=== PATIENT | female | born 1965 | race Caucasian/White ===

== ENCOUNTER 2019-07-25 07:18 | Day surgery (SDC) | payer BC ==
[2019-07-24 12:53] VITALS: BMI 19.5
[2019-07-25] MEDS ORDERED: Fentanyl 100 MCG/2 ML VIAL ONE (07:55)
[2019-07-25] MEDS ORDERED: Midazolam HCl 2 mg/2 ml Vial ONE (07:55)
[2019-07-25] MEDS ORDERED: Ropivacaine 0.5% HCl/PF (150 MG/30 ML VIAL) ONE (07:56)
[2019-07-25] MEDS ORDERED: Ropivacaine 0.2% HCl/PF 20 ML ONE (07:56)
[2019-07-25] MEDS ORDERED: Promethazine HCl 25 MG/ML VIAL IM PRN (09:07)
[2019-07-25] MEDS ORDERED: Zolpidem Tartrate 5 MG TAB PO PRN (09:07)
[2019-07-25] MEDS ORDERED: Ondansetron PF 4 MG/2 ML Vial IVP PRN (09:07)
[2019-07-25] MEDS ORDERED: HYDROcodone/Acetaminophen 10/325 mg Tablet PO PRN ×2 (09:07)
[2019-07-25] MEDS ORDERED: traMADol HCl 50 MG TAB PO PRN ×2 (09:07)
[2019-07-25] MEDS ORDERED: Ropivacaine 0.2% 550 ML 550 ML NERVE BLCK SCH (09:07)
[2019-07-25] MEDS ORDERED: Phenylephrine HCL 10 MG/ML VIAL ONE (09:36)
[2019-07-25] MEDS ORDERED: Dexamethasone 20 MG/5 ML VIAL ONE (11:21)
[2019-07-25] MEDS ORDERED: Lidocaine 1% PF 5 ML VIAL ONE (11:21)
[2019-07-25] MEDS ORDERED: ePHEDrine 50 MG/ML VIAL ONE (11:21)
[2019-07-25] MEDS ORDERED: PROPOFOL 200 MG/20 ML VIAL ONE (11:21)
[2019-07-25] MEDS ORDERED: PHENYLEPHRINE-NS 100 MCG/ML 10 ML SYRINGE ONE (11:21)
[2019-07-25] MEDS ORDERED: Ondansetron PF 4 MG/2 ML Vial ONE (11:21)
[2019-07-25] MEDS ORDERED: Ketorolac Tromethamine 30 MG/ML VIAL IVP SCH (12:00)
--- NOTE | 2019-07-25 12:01 | RAD ---
Exam: XR Wrist 3 Rt View STANDARD HISTORY: ORIF right wrist COMPARISON: 07/23/2019 FINDINGS: 4 intraoperative fluoroscopic images of the right wrist are submitted. A volar plate and multiple screws transfix the previously noted comminuted distal right radial metaph yseal fracture. There has been improvement in alignment of the fracture fragments. Fracture the ulnar styloid process is again seen. Subcutaneous emphysema seen about the distal forearm and right w rist. Correlation with intraoperative findings is recommended. Fluoroscopy: Total time 35.1 seconds with total dose of 0.57 mGy.
--- NOTE | 2019-07-25 12:04 | OP ---
DATE OF PROCEDURE: 07/25/2019 PREOPERATIVE DIAGNOSES: Right distal radius fracture, Colles, no intra- articular split. POSTOPERATIVE DIAGNOSES: Right distal radius fracture, Colles, no intra- articular split. PROCEDURES PERFORMED: 1. Open reduction and internal fixation of right distal radius fracture. 2. Static forearm splint. ROCK LOADER: Tal Romo PA-C ANESTHESIOLOGIST: Bethel Christiansen MD ANESTHESIA: The patient received a LMA with supraclavicular. ESTIMATED BLOOD LOSS: 30 mL. TOURNIQUET TIME: 35 minutes at 250 mmHg. ANTIBIOTICS: Ancef 2 g. IMPLANTS: A 2.4 and 2.7 variable Angle plate with three 2.7 screws and four 2.4 locking screws. COMPLICATIONS: None. HISTORY: Ms. Shabazz is a pleasant 53-year-old female with RA, gout, and hypertension, presents with a right distal radius fracture on ground level fall. I discussed with the patient the risks and benefits of a right open reduction and internal fixation to include pain, scar, bleeding, infection, damage to vital structures, decreased range of motion and strength, fracture above or below the stem, further surgeries, loss of life or limb. The patient understood the risks and benefits of the procedure and elected to proceed. DESCRIPTION OF PROCEDURE: Time-out was performed designating the patient's right upper extremity as the operative site based on site, consents, and marking. After time-out, the patient's right upper extremity was prepped and draped in sterile fashion. Tourniquet was brought up and left up to 35 minutes. Incision made down over the FCR. FCR was pulled ulnarly. We came down through the fascia to expose the pronator quadratus. Pull the FPL ulnarly, exposed the shaft and then exposed the distal segment of bone using both knife and cautery and blunt and sharp dissection with an elevator, exposed the fracture, reduced it, placed our plate, pinned in position and slightly proximal to the distal extent of the ulna. I pinned it in place with two seven screw. We then placed 2 K-wires through the distal hole to help hold the fracture in place. We reduced into position. We then placed two center 2.4 screws, drilling bicortically, placing 22's, which measured actually about 24, and downsized, placed our ulnar styloid and reduction we were out of the DRUJ and radials, we took pictures to ensure the screws were out of the joint, moved back, placed two more screws, 2.7 cortical screws proximally to final pictures, AP, lateral, ulnar deviated lateral, and a pronated PA view. We then washed, closed with some simple stitches over the pronator quadratus. We closed the subcu with 2-0 and 3-0 nylon, placed the patient in a volar splint. The patient will be discharged home with pain meds. The patient will follow up me in 10 to 12 days for suture removal. Job ID: [id number] [facility]
== END 2019-07-25 12:35 | disposition home or self-care (01) ==
LOC: SDC 07:18
PROVIDERS: ATTEND Orthopaedic Surgery
PROC: 3E0T3BZ Introduction of Anesthetic Agent into Peripheral Nerves and Plexi, Percutaneous Approach (ICD-10-PCS; principal; 2019-07-25)
PROC: 0PSH04Z Reposition Right Radius with Internal Fixation Device, Open Approach (ICD-10-PCS; principal; 2019-07-25)
DX: S52.531A Colles' fracture of right radius, initial encounter for closed fracture (principal); I10 Essential (primary) hypertension; M10.9 Gout, unspecified; M06.9 Rheumatoid arthritis, unspecified; G89.18 Other acute postprocedural pain; W18.30XA Fall on same level, unspecified, initial encounter; Z88.2 Allergy status to sulfonamides
CPT/HCPCS: 76000; A4306; C1713; J0690; J1100; J2001; J2250; J2370; J2405; J2704; J2795; J3010; J3490

== ENCOUNTER 2020-01-05 05:24 | Outpatient (CLI) | payer BC ==
[2020-01-05 13:01] LABS: #Basophils 0.1 thou/uL (0.0-0.2); #Eosinphils 0.1 thou/uL (0.0-0.7); #Lymphocytes 2.8 thou/uL (1.20-3.40); #Monocytes 0.7 thou/uL (0.11-0.59); #Neutrophils 6.5 thou/uL (1.40-6.50); %Eosinophils 0.5 % (0.0-10.0); %Lymphocytes 27.6 % (21.0-51.0); %Monocytes 7.1 % (0.0-10.0); %Neutrophils 63.7 % (42.0-75.0); Hemoglobin 14.3 g/dL (12.0-16.0); Mean Corpuscular HGB CONC 33.9 g/dL (32.0-36.0); Mean Corpuscular Hemoglobin 32.2 pg (27.0-31.0); Mean Platelet Volume 7.3 fL (7.4-10.4); Platelet Count 432 thou/uL (130-400); RBC Distribution Width 11.7 % (11.5-14.5); Red Blood Cell (RBC) Count 4.43 mill/uL (4.20-5.40); White Blood Cell (WBC) Count 10.2 thou/uL (4.8-10.8)
[2020-01-05 13:07] LABS: Bacteria/HPF 2+ HPF (None Seen); Bilirubin Negative (Negative); Blood, Urine Negative (Negative); Clarity Clear (Clear); Glucose, Urine (Dipstick) Normal (Negative); Leukocyte Negative Leu/uL (Negative); Nitrite Negative (Negative); Protein, Urine (Dipstick) 50 mg/dL (Neg-Trace); RBC/HPF 0-3 HPF (0-3); Urobilinogen Normal mg/dL (Less than 2)
[2020-01-05 13:31] LABS: Anion Gap 15 mmol/L (10-20); BUN (Urea Nitrogen) 24 mg/dL (9.8-20.1); Calc. Creatinine Clearance 0 mL/min (70-130); Calcium 9.8 mg/dL (7.8-10.44); Carbon Dioxide 28 mmol/L (22-29); Chloride 95 mmol/L (98-107); Estimated GFR-MDRD 72; Glucose 91 mg/dL (70-105); Potassium 3.6 mmol/L (3.5-5.1); Sodium 134 mmol/L (136-145)
== END 2020-01-05 05:25 | disposition home or self-care (01) ==
LOC: LABBT 05:24
PROVIDERS: ATTEND Orthopaedic Surgery Hand Surgery
DX: Z01.818 Encounter for other preprocedural examination (principal); M19.041 Primary osteoarthritis, right hand
CPT/HCPCS: 80048; 81001; 85025; 93005; 93010

== ENCOUNTER 2020-01-09 06:57 | Day surgery (SDC) | payer BC ==
[2020-01-05 11:42] VITALS: BMI 19.5
[2020-01-09] MEDS ORDERED: Fentanyl 100 MCG/2 ML VIAL ONE ×2 (09:57→10:26)
[2020-01-09] MEDS ORDERED: Midazolam HCl 2 mg/2 ml Vial ONE ×2 (09:57→10:25)
[2020-01-09] MEDS ORDERED: Bupivacaine PF 0.5% 30 ML VIAL ONE (10:09)
[2020-01-09] MEDS ORDERED: Bacitracin Zinc Ointment 30 gm TUBE ONE (10:09)
[2020-01-09] MEDS ORDERED: HYDROcodone/Acetaminophen 10/325 mg Tablet PO PRN ×2 (11:00)
[2020-01-09] MEDS ORDERED: Acetaminophen 325 MG TAB PO PRN (11:00)
[2020-01-09] MEDS ORDERED: Ondansetron PF 4 MG/2 ML Vial IVP PRN (11:00)
[2020-01-09] MEDS ORDERED: traMADol HCl 50 MG TAB PO PRN ×2 (11:00)
[2020-01-09] MEDS ORDERED: Promethazine HCl 25 MG/ML VIAL IM PRN (11:00)
[2020-01-09] MEDS ORDERED: Ropivacaine 0.2% 550 ML 550 ML NERVE BLCK SCH (11:00)
[2020-01-09] MEDS ORDERED: Zolpidem Tartrate 5 MG TAB PO PRN (11:00)
[2020-01-09] MEDS ORDERED: Fentanyl 100 MCG/2 ML VIAL IV PRN (11:01)
[2020-01-09] MEDS ORDERED: PROPOFOL 200 MG/20 ML VIAL ONE (12:00)
[2020-01-09] MEDS ORDERED: Dexamethasone 20 MG/5 ML VIAL ONE (12:00)
[2020-01-09] MEDS ORDERED: Lidocaine 1% PF 5 ML VIAL ONE (12:00)
[2020-01-09] MEDS ORDERED: EPHEDRINE 25 MG/5 ML SYRINGE ONE (12:00)
[2020-01-09] MEDS ORDERED: Ondansetron PF 4 MG/2 ML Vial ONE (12:00)
[2020-01-09] MEDS ORDERED: PHENYLEPHRINE-NS 100 MCG/ML 10 ML SYRINGE ONE (12:00)
[2020-01-09] MEDS ORDERED: Ropivacaine 0.2% HCl/PF (40 MG/20 ML VIAL) ONE (12:00)
[2020-01-09] MEDS ORDERED: Ropivacaine 0.5% HCl/PF (150 MG/30 ML VIAL) ONE (12:00)
[2020-01-09] MEDS ORDERED: Ketorolac Tromethamine 30 MG/ML VIAL ONE (13:45)
--- NOTE | 2020-01-09 16:06 | RAD ---
Exam: XR Finger(s) Rt Min 2 View HISTORY: Right index and middle finger metacarpal phalangeal joint arthroplasty. COMPARISON: None FINDINGS/IMPRESSION: There are postsurgical changes involving the metacarpal phalangeal joints of the index and middle fin gers. Correlation with intraoperative findings is recommended.
--- NOTE | 2020-01-10 09:55 | OP ---
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 FINDINGS: 1. Right middle finger, 85% chondral loss with almost completely subluxed palmarly the base of the proximal phalanx. 2. Index finger, nearly 100% chondral loss with 100% subluxation of palm of the index finger at the base of the proximal phalanx. PROCEDURES PERFORMED: 1. C-arm supervision. 2. Right index finger metacarpophalangeal joint arthroplasty with a #3 implant. 3. Right index finger radial collateral ligament repair. 4. Right middle finger metacarpophalangeal joint arthroplasty with size #4 Pan theRightAPI [place] implant. TOTAL BLOOD LOSS: 10 mL. TOURNIQUET TIME: 87 minutes total. FINDINGS: Severe erosive osteoarthritis of the right middle finger, index finger metacarpophalangeal joint, radial collateral ligament wear and subluxed joints as listed above. DESCRIPTION OF PROCEDURE: After successful general endotracheal anesthesia, the limb was prepped and draped. We then gave 10 mL of 0.5% Marcaine block very proximal along the near distal third junction of the metacarpophalangeal head for the index finger and then the same for the middle finger. We outlined two incisions, the first being from the midportion of the proximal phalanx index finger radially to the mid axial line at the level of the joint and then back 15 mm proximal to the joint. Then, we outlined a similar incision beginning at the midportion of the middle finger proximal phalanx ulnarly at the level of the midportion of the middle finger MP joint and then back dorsally 15 mm proximal to the metacarpal head. We first approached the index finger as that was the most eroded and most dislocated. We carried the incision through skin and subcutaneous tissue, created a large flap. Then, into the radial aspect of the retinaculum, 2.5 mm off the tendon edge beginning proximally and all the way to the midportion of the proximal phalanx. We then elevated the extensor mechanism off the joint, did a capsulectomy, immediately saw the marked erosive changes. We also noted the radial collateral ligament was over 70% torn and attenuated off the edge, but the ulnar was intact. We immediately performed ahead of the metacarpophalangeal joint removal with a 5 mm wide sagittal saw at the level of the collateral ligaments. We then performed a palmar based chondral excision with the same saw. I used a rongeur to remove osteotomes. We now had a new box cut shape here. We released the volar plate so that we could easily bring the base of the proximal phalanx to the level of the dorsal metacarpal head. We then shotgun the joint, removed 1.5 mm of the articular surface of the proximal phalanx, preserving the collaterals. Then, we began to use the starter awl first upon the proximal aspect of the joint, then distally under C-arm supervision to make sure it was in the center in the frontal sagittal plane. Once it was, we went to the #2 starter, #2 hand trucker, it was small, then we used #3, and it was best fit. We irrigated the area. We placed the temporary prosthesis inside and we had excellent stability. We removed it, chose #3. We irrigated the area. We took a K-wire and drilled holes on the radial side and using a Lyndora suture with a 3-0 Prolene, placed this inside through the hole in the bone into the canal. I prepared to prosthesis was placed. First the prosthesis was placed appropriately with the distal short end in the proximal phalanx and the long end in the metacarpal. It had excellent stability. We tied the radial collateral ligament in approximately 15 degrees of radial abduction to make sure it was central in the frontal plane. We then repaired the retinaculum with a running 4-0 prolene, put a moist sponge on this wound and approached the middle finger. At the middle finger, we performed the same procedure, except this time the incision of retinaculum was on the ulnar side and incision was on the ulnar side. We reflected the extensor mechanism. We performed the same cuts except that the joint was larger and the articular loss was only about 80% to 85% versus 100% on the other side. This included creating the box cut and removing the proximal 1.5 to 2 mm articular surface on the proximal phalanx. Here, however, we reamed up to a size #4, which gave excellent fit and stability. The collaterals were spared here. The #4 prosthesis size fit and we placed #4 prosthesis. We performed a capsulectomy as well. We repaired the retinaculum with the same running 4-0 suture Prolene. We then released the tourniquet, obtained hemostasis. We closed both skin flaps in a single layer with interrupted 4-0 nylon in a simple pattern. Bulky dressing was applied. We gave the last 10 mL along the incision line, 5 each at each finger. The dressing was placed with the MP joints in approximately 15 degrees of flexion, PIP joints in extension and DIP is free. There was a palmar splint. She left the operating room after C-arm confirmed excellent position of the prosthesis and clinically it was stable. No evidence of anesthetic or operative complications. Job ID: [id number]
== END 2020-01-09 15:42 | disposition home or self-care (01) ==
LOC: SDC 06:57
PROVIDERS: ATTEND Orthopaedic Surgery Hand Surgery
PROC: 0RRU0JZ Replacement of Right Metacarpophalangeal Joint with Synthetic Substitute, Open Approach (ICD-10-PCS; principal; 2020-01-09)
PROC: 0MQ70ZZ Repair Right Hand Bursa and Ligament, Open Approach (ICD-10-PCS; principal; 2020-01-09)
DX: M15.4 Erosive (osteo)arthritis (principal); K21.9 Gastro-esophageal reflux disease without esophagitis; Z79.899 Other long term (current) drug therapy; Z88.2 Allergy status to sulfonamides; Z88.5 Allergy status to narcotic agent
CPT/HCPCS: 76000; A4306; C1776; J0690; J1100; J1885; J2001; J2250; J2405; J2704; J2795; J3010; J3490; S0020

== ENCOUNTER 2020-05-21 07:48 | Outpatient (CLI) | payer BC ==
--- NOTE | 2020-05-21 08:17 | BD ---
EXAM: DEXA bone density examination HISTORY: 54-year-old postmenopausal female for screening COMPARISON: None FINDINGS: L1--bone mineral density 0.892 g/sq cm; T score -0.9 L2--bone mineral density 0.888 g/sq cm; T score -1.3 L3--bone mineral density 0.849 g/sq cm; T score -2.1 L4--bone mineral density 0.896 g/sq cm; T score -1.5 Total L1-L4--bone mineral density 0.882 g/sq cm; T score -1.5 Left femoral neck--bone mineral density0.711; T score -1.2 Total proximal left femur--bone mineral density 0.770; T score -1.4 IMPRESSION: Osteopenia.
== END 2020-05-21 07:49 | disposition home or self-care (01) ==
LOC: BICMAMMO 07:48
PROVIDERS: ATTEND Internal Medicine Rheumatology
DX: M81.0 Age-related osteoporosis without current pathological fracture (principal); M85.89 Other specified disorders of bone density and structure, multiple sites
CPT/HCPCS: 77080

== ENCOUNTER 2021-05-15 13:32 | Outpatient (CLI) | payer BC ==
[2021-05-15 15:24] LABS: Bilirubin Neg (Negative); Blood, Urine Negative (Negative); Clarity Clear (Clear); Glucose, Urine (Dipstick) Normal (Negative); Ketone, Urine 5 mg/dL (Negative); Leukocyte 25 (Negative); Nitrite Negative (Negative); Protein, Urine (Dipstick) 30 mg/dl (Neg-Trace); Specific Gravity, Urine 1.025 (1.002-1.036); Urobilinogen Normal mg/dL (Less than 2)
[2021-05-15 15:33] LABS: #Eosinphils 0.1 10x3/uL (0.0-0.5); #Monocytes 0.6 10x3/uL (0.0-1.1); #Neutrophils 5.3 10x3/uL (1.5-8.4); %Basophils 0.4 % (0.0-2.0); %Eosinophils 0.6 % (0.0-6.0); %Lymphocytes 24.1 % (18.0-47.0); %Monocytes 7.1 % (0.0-10.0); %Neutrophils 67.3 % (40.0-75.0); Hemoglobin 11.5 g/dL (12.0-15.5); Mean Corpuscular HGB CONC 32.4 g/dL (32.0-36.0); Mean Corpuscular Hemoglobin 31.9 pg (27.0-33.0); Mean Corpuscular Volume 98.3 fl (81.6-98.3); Mean Platelet Volume 10.6 fl (7.4-10.4); Platelet Count 367 10x3/uL (150-450); RBC Distribution Width 13.6 % (11.5-14.5); Red Blood Cell (RBC) Count 3.61 10x6/uL (3.90-5.03); White Blood Cell (WBC) Count 7.9 10x3/uL (3.5-10.5)
[2021-05-15 15:44] LABS: Bacteria/HPF 1+ HPF (None Seen); Mucous/LPF Rare LPF (<2+); RBC/HPF None Seen HPF (0-3); Squamous Epithelial 0-3 HPF (0-3); WBC/HPF 0-3 HPF (0-3)
[2021-05-16 12:14] LABS: SARS-CoV-2 PCR by NAA Not Detected (NotDetected)
== END 2021-05-15 13:33 | disposition home or self-care (01) ==
LOC: LABBT 13:32
PROVIDERS: ATTEND Orthopaedic Surgery Hand Surgery
DX: Z01.818 Encounter for other preprocedural examination (principal); M15.1 Heberden's nodes (with arthropathy); Z20.822 Contact with and (suspected) exposure to COVID-19
CPT/HCPCS: 81001; 85025; 93005; 93010; U0003; U0005

== ENCOUNTER 2021-05-20 06:44 | Day surgery (SDC) | payer BC ==
[2021-05-16 14:52] VITALS: BMI 19.6
[2021-05-20] MEDS ORDERED: Bupivacaine PF 0.5% 30 ML VIAL ONE (07:55)
[2021-05-20] MEDS ORDERED: Sodium Chloride 0.9% 10 ML ONE (07:56)
[2021-05-20] MEDS ORDERED: Bacitracin Zinc Ointment 30 gm TUBE ONE (07:56)
[2021-05-20] MEDS ORDERED: PROPOFOL 200 MG/20 ML VIAL ONE (08:37)
[2021-05-20] MEDS ORDERED: ePHEDrine Sulfate 50 MG/10 ML VIAL ONE (08:37)
[2021-05-20] MEDS ORDERED: Lidocaine 1% PF 5 ML VIAL ONE (08:37)
[2021-05-20] MEDS ORDERED: Ketorolac Tromethamine 30 MG/ML VIAL ONE ×2 (08:37→10:43)
[2021-05-20] MEDS ORDERED: Dexamethasone 20 MG/5 ML VIAL ONE (08:37)
[2021-05-20] MEDS ORDERED: PHENYLEPHRINE-NS 100 MCG/ML 10 ML SYRINGE ONE (08:37)
[2021-05-20] MEDS ORDERED: Ondansetron PF 4 MG/2 ML Vial ONE (08:37)
[2021-05-20] MEDS ORDERED: Fentanyl 100 MCG/2 ML VIAL ONE (10:43)
== END 2021-05-20 13:02 | disposition home or self-care (01) ==
LOC: SDC 06:44
PROVIDERS: ATTEND Orthopaedic Surgery Hand Surgery
PROC: 0RGW04Z Fusion of Right Finger Phalangeal Joint with Internal Fixation Device, Open Approach (ICD-10-PCS; principal; 2021-05-20)
DX: M19.041 Primary osteoarthritis, right hand (principal); I10 Essential (primary) hypertension; K21.9 Gastro-esophageal reflux disease without esophagitis; Z79.899 Other long term (current) drug therapy; Z88.2 Allergy status to sulfonamides; Z88.5 Allergy status to narcotic agent
CPT/HCPCS: 76000; J0690; J1100; J1885; J2405; J2704; J3010; J3490; S0020

== ENCOUNTER 2021-05-28 13:19 | Outpatient (CLI) | payer BC | END 2021-05-28 13:20 | disposition home or self-care (01) | LOC: BICMAMMO 13:19 | PROVIDERS: ATTEND Internal Medicine Rheumatology | DX: M85.89 Other specified disorders of bone density and structure, multiple sites (principal) | CPT/HCPCS: 77080 ==

== ENCOUNTER 2022-03-06 13:33 | Outpatient (CLI) | payer OTHER ==
[2022-03-06 14:18] LABS: #Basophils 0.1 10x3/uL (0.0-0.2); #Eosinphils 0.1 10x3/uL (0.0-0.5); #Monocytes 0.5 10x3/uL (0.0-1.1); #Neutrophils 7.1 10x3/uL (1.5-8.4); %Basophils 0.5 % (0.0-2.0); %Lymphocytes 21.6 % (18.0-47.0); %Monocytes 5.1 % (0.0-10.0); %Neutrophils 71.3 % (40.0-75.0); Hemoglobin 13.5 g/dL (12.0-15.5); Mean Corpuscular HGB CONC 33.5 g/dL (32.0-36.0); Mean Corpuscular Volume 95.5 fl (81.6-98.3); Mean Platelet Volume 9.7 fl (7.4-10.4); Platelet Count 440 10x3/uL (150-450); RBC Distribution Width 13.4 % (11.5-14.5); Red Blood Cell (RBC) Count 4.22 10x6/uL (3.90-5.03)
[2022-03-06 14:26] LABS: Anion Gap 15 mmol/L (10-20); BUN (Urea Nitrogen) 20 mg/dL (9.8-20.1); Calc. Creatinine Clearance 0 mL/min (70-130); Calcium 9.7 mg/dL (7.8-10.44); Carbon Dioxide 26 mmol/L (22-29); Chloride 101 mmol/L (98-107); Glucose 91 mg/dL (70-105); Potassium 3.4 mmol/L (3.5-5.1); Sodium 139 mmol/L (136-145)
[2022-03-06 22:16] LABS: SARS-CoV-2 PCR by NAA Not Detected (NotDetected)
== END 2022-03-06 13:34 | disposition home or self-care (01) ==
LOC: LABBT 13:33
PROVIDERS: ATTEND Orthopaedic Surgery Hand Surgery
DX: Z01.818 Encounter for other preprocedural examination (principal); T84.84XA Pain due to internal orthopedic prosthetic devices, implants and grafts, initial encounter; Z20.822 Contact with and (suspected) exposure to COVID-19
CPT/HCPCS: 80048; 85025; 93005; 93010; U0003; U0005

== ENCOUNTER 2025-10-19 13:24 | Outpatient (CLI) | payer BC | END 2025-10-19 13:25 | disposition home or self-care (01) | LOC: SCSMAMMO 13:24 → SCSBT 13:25 | PROVIDERS: ATTEND Internal Medicine Endocrinology, Diabetes & Metabolism | DX: M85.851 Other specified disorders of bone density and structure, right thigh (principal); M85.852 Other specified disorders of bone density and structure, left thigh | CPT/HCPCS: 77080 ==